=== PATIENT | male | born 1990 | race Caucasian/White ===

== ENCOUNTER 2019-04-15 17:48 | Emergency (ER) | payer SELFPAY ==
[~2019-04-15] VITALS: Ht 177.8 cm; Wt 111.4 kg
[~2019-04-15 17:48] MED LIST: DIVA-78 PO; MIRT-92 PO; PANT40TA25 PO; QUET400T5 PO; RISP3 PO
[2019-04-15] MEDS ORDERED: ARIP5TAB8 PO (18:01)
[2019-04-15 20:21] VITALS: BP 133/84
[2019-04-15] MEDS ORDERED: ARIPiprazole 5 MG TABLET PO ONE (20:30)
== END 2019-04-15 21:30 | disposition home or self-care (01) ==
LOC: EMS 17:51
DX: F20.9 Schizophrenia, unspecified (principal); F32.9 Major depressive disorder, single episode, unspecified; F41.9 Anxiety disorder, unspecified; F17.210 Nicotine dependence, cigarettes, uncomplicated; F12.90 Cannabis use, unspecified, uncomplicated; F15.90 Other stimulant use, unspecified, uncomplicated; Z76.0 Encounter for issue of repeat prescription; Z79.899 Other long term (current) drug therapy; Z88.5 Allergy status to narcotic agent